=== PATIENT | male | born 1975 | race Caucasian/White ===

== ENCOUNTER 2016-11-15 21:03 | Emergency (ER) | payer MEDICARE, MEDICAID ==
[~2016-11-15] VITALS: Ht 190.5 cm; Wt 88.6 kg
[~2016-11-15 21:03] MED LIST: ABILIFY 10MG TA10 MG PO; ATIVAN 1MG T1 MG/TAB PO; CLEOCIN HC150 MG/CAP PO; CLEOCIN HCL300 MG PO; COGENTIN 1MG1 MG/TAB PO; COLACE 100100 MG/CAP PO; DDAVP TAB0.2 MG PO; DEPAKENE250 MG/5 M PO; DEPAKOTE; DEPAKOTE 250MG250 MG PO; DOXYCYCLINE 10100 MG PO; GEODON60 MG PO; GEODON80 MG PO; HALDOL .5M0.5 MG/TAB PO; HALDOL 5MG T5 MG/TAB PO; INVEGA6 MG PO; KLONOPIN 1MG1 MG PO; NEURONTIN300 MG/CAP PO; NORCO 325 MG-51 TAB PO; PAIN MED; PEPCID 20MG TAB20 MG PO; XANAX .25M0.25 MG/TA PO; [UNRECOGNIZED DRUG - OTHER]
[2016-11-15 23:12] LABS: INFLUENZA B NEGATIVE
[2016-11-15 23:52] VITALS: BP 115/62; PULSE 84; TEMP 100.3
[2016-11-16] MEDS ORDERED: ZITHROMAX 250M250 MG PO (00:08)
== END 2016-11-16 00:24 | disposition home or self-care (01) ==
LOC: COL.ER 21:03
PROVIDERS: Nurse Practitioner
DX: J06.9 Acute upper respiratory infection, unspecified (principal); F17.210 Nicotine dependence, cigarettes, uncomplicated

== ENCOUNTER 2017-04-15 21:51 | Emergency (ER) | payer MEDICARE, MEDICAID ==
[~2017-04-15] VITALS: Ht 193 cm; Wt 73.4 kg
[~2017-04-15 21:51] MED LIST changes: +ZITHROMAX 250M250 MG PO
[2017-04-15 21:54] VITALS: BP 124/73; TEMP 98
[2017-04-15] MEDS ORDERED: ZYPREXA ZYD10 MG/TAB PO (21:59)
[2017-04-15] MEDS ORDERED: NORCO 325 MG-51 TAB PO (22:30)
[2017-04-15] MEDS ORDERED: CLEOCIN HCL300 MG PO (22:30)
[2017-04-15 22:47] VITALS: PULSE 65
== END 2017-04-15 22:47 | disposition home or self-care (01) ==
LOC: COL.ER 21:51
DX: K02.9 Dental caries, unspecified (principal); F31.9 Bipolar disorder, unspecified; F20.9 Schizophrenia, unspecified; F17.210 Nicotine dependence, cigarettes, uncomplicated

== ENCOUNTER 2017-05-13 22:40 | Emergency (ER) | payer MEDICARE, MEDICAID ==
[~2017-05-13] VITALS: Ht 193 cm; Wt 71.7 kg
[~2017-05-13 22:40] MED LIST changes: +ZYPREXA ZYD10 MG/TAB PO
[2017-05-13 22:42] VITALS: BP 122/72; TEMP 98.4
[2017-05-14 00:43] VITALS: PULSE 88
[2017-05-14] MEDS ORDERED: CLEOCIN HCL300 MG PO (00:44)
== END 2017-05-14 00:45 | disposition home or self-care (01) ==
LOC: COL.ER 22:40
DX: R51 Headache (principal); R42 Dizziness and giddiness; M54.2 Cervicalgia; F20.9 Schizophrenia, unspecified

== ENCOUNTER 2017-09-03 21:03 | Emergency (ER) | payer MEDICARE, MEDICAID ==
[~2017-09-03] VITALS: Ht 193 cm; Wt 68.6 kg
[2017-09-03 21:15] VITALS: BP 122/77; TEMP 98.3
[2017-09-03] MEDS ORDERED: MUCINEX D1 TER PO (21:55)
[2017-09-03 22:13] VITALS: PULSE 74
== END 2017-09-03 22:15 | disposition home or self-care (01) ==
LOC: COL.ER 21:03
DX: R51 Headache (principal); F31.9 Bipolar disorder, unspecified; F20.9 Schizophrenia, unspecified; F17.210 Nicotine dependence, cigarettes, uncomplicated

== ENCOUNTER 2018-07-04 10:14 | Emergency (ER) | payer MEDICARE, MEDICAID ==
[~2018-07-04] VITALS: Ht 193 cm; Wt 73.6 kg
[~2018-07-04 10:14] MED LIST changes: +MUCINEX D1 TER PO
[2018-07-04 10:22] VITALS: BP 119/70; TEMP 97.6
[2018-07-04] MEDS ORDERED: CLEOCIN HCL300 MG PO (11:15)
[2018-07-04 11:28] VITALS: PULSE 64
== END 2018-07-04 11:28 | disposition home or self-care (01) ==
LOC: COL.ER 10:14
DX: K04.7 Periapical abscess without sinus (principal); K02.9 Dental caries, unspecified; F20.9 Schizophrenia, unspecified; F31.9 Bipolar disorder, unspecified; F95.2 Tourette's disorder; F17.210 Nicotine dependence, cigarettes, uncomplicated; Z88.0 Allergy status to penicillin

== ENCOUNTER 2019-05-07 17:39 | Emergency (ER) | payer MEDICARE, MEDICAID ==
[2019-05-07 17:46] VITALS: BP 130/78; PULSE 97; TEMP 98.4
== END 2019-05-07 18:48 | disposition home or self-care (01) ==
LOC: COL.ER 17:39
DX: R51 Headache (principal)

== ENCOUNTER 2019-07-21 04:42 | Emergency (ER) | payer MEDICARE, MEDICAID ==
[~2019-07-21] VITALS: Ht 195.6 cm; Wt 81.8 kg
[2019-07-21] MEDS ORDERED: NORCO 325 MG-51 TAB PO (05:39)
[2019-07-21] MEDS ORDERED: CLEOCIN HCL300 MG PO (05:39)
[2019-07-21] MEDS ORDERED: FLEXERIL 1010 MG/TAB PO (05:39)
[2019-07-21 05:50] VITALS: PULSE 50
[2019-07-21 06:10] VITALS: BP 121/71; TEMP 97.6
== END 2019-07-21 06:10 | disposition home or self-care (01) ==
LOC: COL.ER 04:42
DX: S39.012A Strain of muscle, fascia and tendon of lower back, initial encounter (principal); R51 Headache; K08.89 Other specified disorders of teeth and supporting structures; F17.210 Nicotine dependence, cigarettes, uncomplicated; F32.9 Major depressive disorder, single episode, unspecified; X50.0XXA Overexertion from strenuous movement or load, initial encounter; Y92.009 Unspecified place in unspecified non-institutional (private) residence as the place of occurrence of the external cause

== ENCOUNTER 2019-12-18 19:18 | Emergency (ER) | payer MEDICARE ==
[~2019-12-18] VITALS: Ht 195.6 cm; Wt 90.9 kg
[~2019-12-18 19:18] MED LIST changes: +FLEXERIL 1010 MG/TAB PO
[2019-12-18 19:25] VITALS: TEMP 98.2
[2019-12-18 20:01] LABS: BASO % 0.4 % (0.0-2.0); EOS # 0.1 (0.0-0.7); EOS % 1.2 % (0-4.0); GRAN # 4.7 (1.4-6.5); GRAN % 70.8 % (42.2-75.2); HEMATOCRIT 44.2 % (42.0-52.0); LYMPH # 1.3 (1.2-3.4); LYMPH % 19.1 % (20.0-51.0); MEAN CELL VOLUME 90 fl (80.0-100.0); MEAN CORPUSCULAR HEMOGLOBIN 30 pg (27.0-31.0); MEAN CORPUSCULAR HGB CONC 34 g/dl (33.0-37.0); MEAN PLATELET VOLUME 8.7 fl (7.4-10.4); MONO # 0.5 (0.1-0.6); MONO % 7.8 % (1.7-9.3); PLATELET COUNT 354 K/mm3 (130-400); RED BLOOD COUNT 4.94 M/mm3 (4.20-5.60); REDCELL DISTRIBUTION WIDTH-CV 12.8 % (11.5-14.5)
[2019-12-18 20:16] LABS: ALANINE AMINOTRANSFERASE 19 U/L (21-72); ALBUMIN 4.6 gm/dL (3.5-5.0); ALKALINE PHOSPHATASE 68 U/L (50-136); ANION GAP 9 mmol/L (7-16); AST,SGOT 20 U/L (15-37); BILIRUBIN,TOTAL 0.4 mg/dL (0.0-1.0); BLOOD UREA NITROGEN 10 mg/dL (9-20); CALCIUM 9.4 mg/dL (8.4-10.2); CARBON DIOXIDE 27 mmol/L (22-30); CHLORIDE 106 mmol/L (98-107); CREATININE, serum 0.67 (0.66-1.25); GLUCOSE 111 mg/dL (74-106); LIPASE 63 U/L (23-300); SODIUM 142 mmol/L (137-145); TOTAL PROTEIN 8.3 gm/dL (6.4-8.2)
[2019-12-18 20:26] LABS: C-REACTIVE PROTEIN < 0.5 mg/dL (0.0-0.9)
[2019-12-18 20:27] LABS: TROPONIN-I < 0.012 ng/mL (0.000-0.035)
[2019-12-18 21:07] VITALS: BP 117/78; PULSE 52
== END 2019-12-18 21:07 | disposition home or self-care (01) ==
LOC: COL.ER 19:18
PROVIDERS: Emergency Medicine
DX: R07.89 Other chest pain (principal); F17.210 Nicotine dependence, cigarettes, uncomplicated
CPT/HCPCS: J7030

== ENCOUNTER 2020-03-26 10:35 | Emergency (ER) | payer MEDICARE ==
[~2020-03-26] VITALS: Ht 195.6 cm; Wt 90.9 kg
[2020-03-26 11:07] LABS: COLLECTION METHOD CLEAN CATCH
[2020-03-26 11:11] LABS: BASO % 0.9 % (0.0-2.0); EOS # 0.2 (0.0-0.7); GRAN # 2.4 (1.4-6.5); GRAN % 54.6 % (42.2-75.2); HEMATOCRIT 37.6 % (42.0-52.0); HEMOGLOBIN 12.6 g/dl (13.5-18.0); LYMPH # 1.4 (1.2-3.4); LYMPH % 30.9 % (20.0-51.0); MEAN CELL VOLUME 90 fl (80.0-100.0); MEAN CORPUSCULAR HEMOGLOBIN 30 pg (27.0-31.0); MEAN CORPUSCULAR HGB CONC 34 g/dl (33.0-37.0); MEAN PLATELET VOLUME 8.7 fl (7.4-10.4); MONO # 0.4 (0.1-0.6); MONO % 9.6 % (1.7-9.3); PLATELET COUNT 218 K/mm3 (130-400); RED BLOOD COUNT 4.17 M/mm3 (4.20-5.60); REDCELL DISTRIBUTION WIDTH-CV 13.6 % (11.5-14.5)
[2020-03-26 11:14] LABS: PH 7 (5-8); SQUAMOUS EPITHELIAL None Seen /hpf; URINE APPEARANCE Clear; URINE BACTERIA None Seen /hpf; URINE BILIRUBIN Negative (NEGATIVE); URINE BLOOD Negative (NEGATIVE); URINE COLOR Yellow; URINE GLUCOSE Negative (NEGATIVE); URINE KETONE Negative (NEGATIVE); URINE LEUKOCYTE ESTERASE Negative (NEGATIVE); URINE NITRATE Negative (NEGATIVE); URINE PROTEIN(semi-quant) Negative (NEGATIVE); URINE RBC 0-2 /hpf; URINE UROBILINOGEN Negative (NEGATIVE)
[2020-03-26 11:20] LABS: ALANINE AMINOTRANSFERASE 19 U/L (4-49); ALBUMIN 4.1 gm/dL (3.5-5.0); ALKALINE PHOSPHATASE 54 U/L (50-136); ANION GAP 6 mmol/L (7-16); AST,SGOT 24 U/L (15-37); BILIRUBIN,TOTAL 0.5 mg/dL (0.0-1.0); BLOOD UREA NITROGEN 10 mg/dL (9-20); CALCIUM 9.5 mg/dL (8.4-10.2); CARBON DIOXIDE 28 mmol/L (22-30); CHLORIDE 105 mmol/L (98-107); CREATININE, serum 0.79 (0.66-1.25); GLUCOSE 121 mg/dL (74-106); POTASSIUM 4.3 mmol/L (3.4-5.0); SODIUM 138 mmol/L (137-145); TOTAL PROTEIN 7.3 gm/dL (6.4-8.2)
[2020-03-26 11:22] LABS: ACETAMINOPHEN < 10 ug/mL (10-30); ALCOHOL(ethanol),MEDICAL < 10 mg/dL; SALICYLATE < 1.0 mg/dL
[2020-03-26 11:25] LABS: TRICYCLIC ANTIDEPRESS URINE NEGATIVE
[2020-03-28 07:42] VITALS: TEMP 98.1
[2020-03-28] MEDS ORDERED: ZYPREXA ZYDIS20 MG PO (07:45)
[2020-03-28 12:04] VITALS: BP 108/65; PULSE 59
== END 2020-03-28 14:10 | disposition home or self-care (01) ==
LOC: COL.ER 10:35
PROVIDERS: Emergency Medicine
DX: F29 Unspecified psychosis not due to a substance or known physiological condition (principal); F20.9 Schizophrenia, unspecified
CPT/HCPCS: J1200; J1630; J2060

== ENCOUNTER 2020-06-08 03:46 | Emergency (ER) | payer MEDICARE ==
[~2020-06-08] VITALS: Ht 193 cm; Wt 79.5 kg
[~2020-06-08 03:46] MED LIST changes: +ZYPREXA ZYDIS20 MG PO
[2020-06-08 03:49] VITALS: TEMP 98.9
[2020-06-08 04:43] LABS: BASO % 0.8 % (0.0-2.0); EOS # 0.3 (0.0-0.7); EOS % 7.5 % (0-4.0); GRAN # 1.6 (1.4-6.5); GRAN % 44.5 % (42.2-75.2); HEMATOCRIT 37.4 % (42.0-52.0); HEMOGLOBIN 12.4 g/dl (13.5-18.0); LYMPH # 1.3 (1.2-3.4); LYMPH % 36.3 % (20.0-51.0); MEAN CELL VOLUME 92 fl (80.0-100.0); MEAN CORPUSCULAR HEMOGLOBIN 31 pg (27.0-31.0); MEAN CORPUSCULAR HGB CONC 33 g/dl (33.0-37.0); MEAN PLATELET VOLUME 8.9 fl (7.4-10.4); MONO # 0.4 (0.1-0.6); MONO % 10.6 % (1.7-9.3); PLATELET COUNT 197 K/mm3 (130-400); RED BLOOD COUNT 4.05 M/mm3 (4.20-5.60); REDCELL DISTRIBUTION WIDTH-CV 13.3 % (11.5-14.5)
[2020-06-08 04:53] LABS: INR 1.1 (0.8-3.0); PROTHROMBIN TIME 12.7 SECONDS (9.7-12.8)
[2020-06-08 04:56] LABS: ALANINE AMINOTRANSFERASE 18 U/L (4-49); ALBUMIN 4.3 gm/dL (3.5-5.0); ALCOHOL(ethanol),MEDICAL 50 mg/dL; ALKALINE PHOSPHATASE 55 U/L (50-136); ANION GAP 8 mmol/L (7-16); AST,SGOT 25 U/L (15-37); BILIRUBIN,TOTAL 0.4 mg/dL (0.0-1.0); BLOOD UREA NITROGEN 14 mg/dL (9-20); CALCIUM 9.1 mg/dL (8.4-10.2); CARBON DIOXIDE 26 mmol/L (22-30); CHLORIDE 107 mmol/L (98-107); CREATININE, serum 0.65 (0.66-1.25); GLUCOSE 86 mg/dL (74-106); POTASSIUM 3.5 mmol/L (3.4-5.0); SODIUM 141 mmol/L (137-145); TOTAL PROTEIN 7.4 gm/dL (6.4-8.2)
[2020-06-08 05:09] LABS: ACETAMINOPHEN < 10 ug/mL (10-30); SALICYLATE < 1.0 mg/dL
[2020-06-08 05:29] LABS: COLLECTION METHOD CLEAN CATCH
[2020-06-08 05:36] LABS: MUCOUS Present /lpf; PH 5 (5-8); URINE APPEARANCE Hazy; URINE BACTERIA None Seen /hpf; URINE BILIRUBIN Negative (NEGATIVE); URINE BLOOD Negative (NEGATIVE); URINE COLOR Yellow; URINE GLUCOSE Negative (NEGATIVE); URINE KETONE Negative (NEGATIVE); URINE LEUKOCYTE ESTERASE Negative (NEGATIVE); URINE NITRATE Negative (NEGATIVE); URINE PROTEIN(semi-quant) Negative (NEGATIVE); URINE RBC 0-2 /hpf
[2020-06-08 05:49] LABS: TRICYCLIC ANTIDEPRESS URINE NEGATIVE
[2020-06-08 12:20] VITALS: BP 134/78; PULSE 74
--- NOTE | 2020-06-08 15:50 | NUR ---
Patient and mother returned to ER, patient gave this RN permission to speak with his mother. Mother had questions regarding patient diagnosis and what medications he received. I spoke with JONO Sparrow and Dr. Morrell and then answered the mother's question to the best of my ability. They were ok once questions were answered and left the building after.
== END 2020-06-08 12:20 | disposition home or self-care (01) ==
LOC: COL.ER 03:46
PROVIDERS: Emergency Medicine
DX: F23 Brief psychotic disorder (principal)
CPT/HCPCS: J0696

== ENCOUNTER 2020-06-24 13:43 | Emergency (ER) | payer MEDICARE ==
[~2020-06-24] VITALS: Ht 182.9 cm; Wt 79.5 kg
[2020-06-24 13:58] VITALS: BP 123/64; TEMP 99.1
[2020-06-24 16:28] LABS: COLLECTION METHOD CLEAN CATCH
[2020-06-24 16:48] LABS: MUCOUS Present /lpf; PH 6 (5-8); SQUAMOUS EPITHELIAL 0-2 /hpf; URINE APPEARANCE Clear; URINE BACTERIA None Seen /hpf; URINE BILIRUBIN Negative (NEGATIVE); URINE BLOOD Negative (NEGATIVE); URINE COLOR Yellow; URINE GLUCOSE Negative (NEGATIVE); URINE KETONE Trace (NEGATIVE); URINE LEUKOCYTE ESTERASE Negative (NEGATIVE); URINE NITRATE Negative (NEGATIVE); URINE PROTEIN(semi-quant) Negative (NEGATIVE); URINE RBC 0-2 /hpf; URINE UROBILINOGEN Negative (NEGATIVE)
[2020-06-24 17:30] LABS: TRICYCLIC ANTIDEPRESS URINE NEGATIVE
[2020-06-24 19:34] VITALS: PULSE 80
== END 2020-06-24 19:34 | disposition home or self-care (01) ==
LOC: COL.ER 13:43
PROVIDERS: Emergency Medicine
DX: F23 Brief psychotic disorder (principal); S80.812A Abrasion, left lower leg, initial encounter; Z88.0 Allergy status to penicillin; Z88.8 Allergy status to other drugs, medicaments and biological substances; X58.XXXA Exposure to other specified factors, initial encounter

== ENCOUNTER 2020-07-30 21:36 | Emergency (ER) | payer MEDICARE, MEDICAID ==
[~2020-07-30] VITALS: Ht 193 cm; Wt 68.2 kg
[2020-07-30] MEDS ORDERED: CEPHALEXIN500 M1 PO (22:38)
[2020-07-30 22:44] LABS: BASO % 0.5 % (0.0-2.0); EOS # 0.4 (0.0-0.7); EOS % 6.6 % (0-4.0); GRAN # 3.2 (1.4-6.5); GRAN % 57.6 % (42.2-75.2); LYMPH # 1.4 (1.2-3.4); LYMPH % 25.6 % (20.0-51.0); MEAN CELL VOLUME 90 fl (80.0-100.0); MEAN CORPUSCULAR HEMOGLOBIN 30 pg (27.0-31.0); MEAN CORPUSCULAR HGB CONC 34 g/dl (33.0-37.0); MEAN PLATELET VOLUME 8.9 fl (7.4-10.4); MONO # 0.5 (0.1-0.6); MONO % 9.3 % (1.7-9.3); PLATELET COUNT 215 K/mm3 (130-400); RED BLOOD COUNT 3.95 M/mm3 (4.20-5.60); REDCELL DISTRIBUTION WIDTH-CV 12.7 % (11.5-14.5)
[2020-07-30 22:55] LABS: HEMATOCRIT 35.6 % (42.0-52.0)
[2020-07-30 23:01] LABS: ALANINE AMINOTRANSFERASE 27 U/L (4-49); ALBUMIN 4.4 gm/dL (3.5-5.0); ALKALINE PHOSPHATASE 82 U/L (50-136); ANION GAP 9 mmol/L (7-16); AST,SGOT 36 U/L (15-37); BILIRUBIN,TOTAL 0.9 mg/dL (0.0-1.0); BLOOD UREA NITROGEN 12 mg/dL (9-20); CALCIUM 9.2 mg/dL (8.4-10.2); CARBON DIOXIDE 30 mmol/L (22-30); CHLORIDE 97 mmol/L (98-107); CREATININE, serum 0.59 (0.66-1.25); GLUCOSE 88 mg/dL (74-106); POTASSIUM 3.3 mmol/L (3.4-5.0); SODIUM 135 mmol/L (137-145); TOTAL PROTEIN 8.2 gm/dL (6.4-8.2)
[2020-07-30 23:02] LABS: ACETAMINOPHEN < 10 ug/mL (10-30); ALCOHOL(ethanol),MEDICAL < 10 mg/dL; SALICYLATE < 1.0 mg/dL
[2020-07-31 00:13] LABS: COLLECTION METHOD CLEAN CATCH
[2020-07-31 00:18] LABS: MUCOUS Present /lpf; PH 6 (5-8); SQUAMOUS EPITHELIAL 0-2 /hpf; URINE APPEARANCE Clear; URINE BACTERIA None Seen /hpf; URINE BILIRUBIN Negative (NEGATIVE); URINE BLOOD Negative (NEGATIVE); URINE COLOR Yellow; URINE GLUCOSE Negative (NEGATIVE); URINE KETONE Trace (NEGATIVE); URINE LEUKOCYTE ESTERASE Negative (NEGATIVE); URINE NITRATE Negative (NEGATIVE); URINE PROTEIN(semi-quant) Negative (NEGATIVE); URINE RBC 0-2 /hpf; URINE UROBILINOGEN Negative (NEGATIVE); URINE WBC 0-2 /hpf
[2020-07-31 00:34] LABS: TRICYCLIC ANTIDEPRESS URINE NEGATIVE
[2020-07-31] MEDS ORDERED: ZYPREXA15 MG PO (12:28)
[2020-07-31] MEDS ORDERED: STOOL SOFTENER100 M2 PO (12:29)
[2020-07-31] MEDS ORDERED: HALDOL 5MG T5 MG/TAB PO (12:30)
[2020-08-01 11:45] VITALS: BP 123/73; PULSE 75; TEMP 97.7
== END 2020-08-01 12:47 | disposition home or self-care (01) ==
LOC: COL.ER 21:36
PROVIDERS: Emergency Medicine
DX: S90.812A Abrasion, left foot, initial encounter (principal); L03.116 Cellulitis of left lower limb; F20.9 Schizophrenia, unspecified; Z88.0 Allergy status to penicillin; Z88.8 Allergy status to other drugs, medicaments and biological substances; X58.XXXA Exposure to other specified factors, initial encounter
CPT/HCPCS: J1200; J1790

== ENCOUNTER 2020-08-20 11:45 | Emergency (ER) | payer MEDICARE, MEDICAID ==
[~2020-08-20] VITALS: Ht 180.3 cm; Wt 81.8 kg
[~2020-08-20 11:45] MED LIST changes: +CEPHALEXIN500 M1 PO; +STOOL SOFTENER100 M2 PO; +ZYPREXA15 MG PO
[2020-08-20 11:49] VITALS: TEMP 98
[2020-08-20 12:14] LABS: BASO % 0.7 % (0.0-2.0); EOS # 0.2 (0.0-0.7); EOS % 5.6 % (0-4.0); GRAN # 1.1 (1.4-6.5); GRAN % 41.9 % (42.2-75.2); HEMATOCRIT 36.9 % (42.0-52.0); HEMOGLOBIN 12.4 g/dl (13.5-18.0); LYMPH # 1.1 (1.2-3.4); LYMPH % 42.2 % (20.0-51.0); MEAN CELL VOLUME 92 fl (80.0-100.0); MEAN CORPUSCULAR HEMOGLOBIN 31 pg (27.0-31.0); MEAN CORPUSCULAR HGB CONC 34 g/dl (33.0-37.0); MEAN PLATELET VOLUME 8.8 fl (7.4-10.4); MONO # 0.3 (0.1-0.6); MONO % 9.6 % (1.7-9.3); PLATELET COUNT 226 K/mm3 (130-400); RED BLOOD COUNT 4.02 M/mm3 (4.20-5.60); REDCELL DISTRIBUTION WIDTH-CV 13.4 % (11.5-14.5)
[2020-08-20 12:44] LABS: ALANINE AMINOTRANSFERASE 35 U/L (4-49); ALBUMIN 4.2 gm/dL (3.5-5.0); ALKALINE PHOSPHATASE 77 U/L (50-136); ANION GAP 6 mmol/L (7-16); AST,SGOT 29 U/L (15-37); BILIRUBIN,TOTAL 0.5 mg/dL (0.0-1.0); BLOOD UREA NITROGEN 15 mg/dL (9-20); CALCIUM 9.6 mg/dL (8.4-10.2); CARBON DIOXIDE 31 mmol/L (22-30); CHLORIDE 102 mmol/L (98-107); CREATININE, serum 0.66 (0.66-1.25); GLUCOSE 122 mg/dL (74-106); POTASSIUM 3.9 mmol/L (3.4-5.0); SODIUM 139 mmol/L (137-145); TOTAL PROTEIN 7.6 gm/dL (6.4-8.2)
[2020-08-20 12:54] LABS: ACETAMINOPHEN < 10 ug/mL (10-30); ALCOHOL(ethanol),MEDICAL < 10 mg/dL; SALICYLATE < 1.0 mg/dL
[2020-08-20 12:55] LABS: TRICYCLIC ANTIDEPRESS URINE NEGATIVE
[2020-08-20 13:47] LABS: COLLECTION METHOD CLEAN CATCH
[2020-08-20] MEDS ORDERED: INVEGA9 MG PO (13:48)
[2020-08-20] MEDS ORDERED: TRILEPTAL600 MG PO (13:48)
[2020-08-20] MEDS ORDERED: DESYREL 50MG50 MG PO (13:49)
[2020-08-20] MEDS ORDERED: TYLENOL 325MG325 MG PO (13:49)
[2020-08-20] MEDS ORDERED: BENADRYL50 MG PO (13:50)
[2020-08-20] MEDS ORDERED: PROLIX10TA (13:51)
[2020-08-20 13:54] LABS: MUCOUS Present /lpf; PH 6 (5-8); SQUAMOUS EPITHELIAL None Seen /hpf; URINE APPEARANCE Clear; URINE BACTERIA Rare /hpf; URINE BILIRUBIN Negative (NEGATIVE); URINE BLOOD Negative (NEGATIVE); URINE COLOR Yellow; URINE GLUCOSE Negative (NEGATIVE); URINE KETONE Negative (NEGATIVE); URINE LEUKOCYTE ESTERASE Negative (NEGATIVE); URINE NITRATE Negative (NEGATIVE); URINE PROTEIN(semi-quant) Negative (NEGATIVE); URINE RBC 0-2 /hpf; URINE UROBILINOGEN >=4.0 mg/dL (NEGATIVE)
[2020-08-22 15:17] VITALS: BP 126/71; PULSE 112
== END 2020-08-22 16:00 ==
LOC: COL.ER 11:45
PROVIDERS: Family Medicine
DX: F20.9 Schizophrenia, unspecified (principal); F29 Unspecified psychosis not due to a substance or known physiological condition; F17.210 Nicotine dependence, cigarettes, uncomplicated; Z88.0 Allergy status to penicillin; Z88.8 Allergy status to other drugs, medicaments and biological substances
CPT/HCPCS: J1630; J2060; J2250

== ENCOUNTER 2022-01-08 17:50 | Emergency (ER) | payer MEDICARE, MEDICAID ==
[~2022-01-08] VITALS: Ht 193 cm; Wt 90.5 kg
[~2022-01-08 17:50] MED LIST changes: +BENADRYL50 MG PO; +DESYREL 50MG50 MG PO; +INVEGA9 MG PO; +PROLIX10TA; +TRILEPTAL600 MG PO; +TYLENOL 325MG325 MG PO
[2022-01-08 18:08] VITALS: TEMP 98
[2022-01-08] MEDS ORDERED: CLEOCIN HCL300 MG PO ×2 (19:34→19:57)
[2022-01-08 19:45] VITALS: BP 144/78; PULSE 76
== END 2022-01-08 19:45 | disposition home or self-care (01) ==
LOC: COL.ER 17:50
DX: S02.5XXA Fracture of tooth (traumatic), initial encounter for closed fracture (principal); K02.9 Dental caries, unspecified; K05.30 Chronic periodontitis, unspecified; F17.210 Nicotine dependence, cigarettes, uncomplicated; Z88.0 Allergy status to penicillin; X58.XXXA Exposure to other specified factors, initial encounter

== ENCOUNTER 2022-03-20 19:50 | Emergency (ER) | payer MEDICARE, MEDICAID ==
[~2022-03-20] VITALS: Ht 193 cm; Wt 86.4 kg
[2022-03-20 20:00] VITALS: BP 107/70; PULSE 99; TEMP 98.3
[2022-03-20] MEDS ORDERED: CLEOCIN HC150 MG/CAP PO (20:25)
== END 2022-03-20 21:01 | disposition home or self-care (01) ==
LOC: COL.ER 19:50
DX: K08.89 Other specified disorders of teeth and supporting structures (principal); Z88.0 Allergy status to penicillin

== ENCOUNTER 2022-07-12 20:10 | Emergency (ER) | payer MEDICARE, MEDICAID ==
[~2022-07-12] VITALS: Ht 193 cm; Wt 88.3 kg
[2022-07-12 20:37] VITALS: TEMP 97
[2022-07-12] MEDS ORDERED: CLEOCIN HC150 MG/CAP PO (20:56)
[2022-07-12 21:15] VITALS: BP 124/80; PULSE 86
== END 2022-07-12 21:15 | disposition home or self-care (01) ==
LOC: COL.ER 20:10
DX: K02.9 Dental caries, unspecified (principal); Z88.0 Allergy status to penicillin; Z28.310 Unvaccinated for COVID-19

== ENCOUNTER 2024-04-24 11:27 | Emergency (ER) | payer MEDICARE ==
[~2024-04-24] VITALS: Ht 190.5 cm; Wt 86.4 kg
[2024-04-24 11:50] VITALS: TEMP 98.1
[2024-04-24] MEDS ORDERED: CLEOCIN HCL300 MG PO (13:08)
[2024-04-24] MEDS ORDERED: NORCO 325 MG-51 TAB PO (13:08)
[2024-04-24] MEDS ORDERED: Clindamycin 150 MG CAP PO ONE (13:15)
[2024-04-24 13:20] VITALS: BP 114/78; PULSE 68
== END 2024-04-24 13:23 | disposition home or self-care (01) ==
LOC: COL.ER 11:27
DX: K08.89 Other specified disorders of teeth and supporting structures (principal)